=== PATIENT | male | born 1985 | race Caucasian/White ===

== ENCOUNTER 2022-01-12 20:34 | Emergency (ER) | payer OTHER, SELFPAY ==
[~2022-01-12 20:34] MED LIST: Iopamidol 370 76% 100 ML VIAL ONE
[2022-01-12] MEDS ORDERED: Fentanyl 100 MCG/2 ML VIAL ONE (21:31)
== END 2022-01-12 22:21 | disposition home or self-care (01) ==
LOC: CSHERS 20:34
DX: R07.89 Other chest pain (principal); M54.2 Cervicalgia; M25.571 Pain in right ankle and joints of right foot; M25.572 Pain in left ankle and joints of left foot; V49.40XA Driver injured in collision with unspecified motor vehicles in traffic accident, initial encounter; Y92.410 Unspecified street and highway as the place of occurrence of the external cause
CPT/HCPCS: 70450; 71260; 72125; 74177; 96374; J3010; Q9967

== ENCOUNTER 2022-08-31 03:04 | Emergency (ER) | payer SELFPAY ==
[2022-08-31] MEDS ORDERED: HYDROcodone/Acetaminophen 10/325 mg Tablet ONE (03:51)
== END 2022-08-31 04:07 | disposition home or self-care (01) ==
LOC: CSHERS 03:04
DX: M25.562 Pain in left knee (principal); G89.28 Other chronic postprocedural pain; F17.210 Nicotine dependence, cigarettes, uncomplicated
CPT/HCPCS: 99283

== ENCOUNTER 2023-09-09 19:03 | Emergency (ER) | payer BC, SELFPAY ==
[2023-09-09] MEDS ORDERED: traMADol HCl 50 MG TAB ONE (20:48)
[2023-09-09] MEDS ORDERED: Doxycycline 100 MG CAP PO SCH (21:00)
== END 2023-09-09 21:01 | disposition home or self-care (01) ==
LOC: CSHERS 19:03
DX: L03.113 Cellulitis of right upper limb (principal); F17.210 Nicotine dependence, cigarettes, uncomplicated
CPT/HCPCS: 99282

== ENCOUNTER 2024-11-26 23:56 | Emergency (ER) | payer BC, SELFPAY ==
[2024-11-27 00:23] LABS: #Basophils 0.03 10x3/uL (0.0-0.2); #Eosinophils 0.14 10x3/uL (0.0-0.5); #Monocytes 0.65 10x3/uL (0.0-1.1); #Neutrophils 3.46 10x3/uL (1.5-8.4); %Basophils 0.5 % (0.0-2.0); %Eosinophils 2.1 % (0.0-6.0); %Lymphocytes 35.1 % (18.0-47.0); %Monocytes 9.8 % (0.0-10.0); %Neutrophils 52.0 % (40.0-75.0); Hematocrit 41.3 % (38.8-50.0); Hemoglobin 13.9 g/dL (13.5-17.5); Mean Corpuscular Hemoglobin 31.0 pg (27.0-33.0); Mean Corpuscular Volume 92.2 fL (81.2-95.1); Platelet Count 192 10x3/uL (150-450); Red Blood Cell (RBC) Count 4.48 10x6/uL (4.32-5.72); White Blood Cell (WBC) Count 6.64 10x3/uL (3.5-10.5)
[2024-11-27] MEDS ORDERED: Boostrix 0.5 ML (Tdap) VIAL (>/=7 yrs of age) ONE (00:38)
[2024-11-27 00:43] LABS: INR-International Normal Ratio 1.0; PTT 26.0 sec (22.0-33.0); Prothrombin Time 10.9 sec (9.5-12.1)
[2024-11-27 00:46] LABS: ALT (SGPT) 125 U/L (Less than 45); AST (SGOT) 81 U/L (11-34); Albumin 4.7 g/dL (3.1-4.5); Alkaline Phosphatase 67 U/L (40-110); Anion Gap 14 mmol/L (10-20); BUN (Urea Nitrogen) 17 mg/dL (8.9-20.6); Bilirubin, Total 0.3 mg/dL (0.3-1.2); Calc. Creatinine Clearance 0 mL/min (70-130); Calcium 9.2 mg/dL (7.8-10.44); Carbon Dioxide 22 mmol/L (22-29); Chloride 108 mmol/L (98-107); Globulin 3.0 g/dL (2.4-3.5); Glucose 92 mg/dL (70-105); Potassium 5.1 mmol/L (3.5-5.1); Sodium 139 mmol/L (136-145)
[2024-11-27 00:47] LABS: Acetaminophen Less than 10 mcg/mL (Less than 10); Salicylate Less than 8.0 mg/dL (Less than 8.0)
[2024-11-27] MEDS ORDERED: Ketorolac Tromethamine 30 MG (1 mL) VIAL ONE (01:04)
== END 2024-11-27 01:29 | disposition home or self-care (01) ==
LOC: CSHERS 23:56
DX: S00.11XA Contusion of right eyelid and periocular area, initial encounter (principal); M25.512 Pain in left shoulder; F17.290 Nicotine dependence, other tobacco product, uncomplicated; Z55.6 Problems related to health literacy; W16.022A Fall into swimming pool striking bottom causing other injury, initial encounter; Y93.11 Activity, swimming; Y92.34 Swimming pool (public) as the place of occurrence of the external cause
CPT/HCPCS: 70450; 71260; 72125; 74177; 80053; 80307; 83605; 85025; 85610; 85730; 90471; 90715; 96374; 96375; J1885; J3010